=== PATIENT | female | born 1955 ===

== ENCOUNTER 2022-09-15 12:33 | Outpatient (REF) | payer MEDICARE, MEDICAID, SELFPAY ==
--- NOTE | 2022-09-15 15:09 | MHC.AU.MED ---
Medical Clearance for Hearing Instrumentation Date: 09/15/22 Patient Name: Kathy Estrella Date of : 1955 Primary Care Provider: Yolis Finch NP We have seen your patient on 09/15/22 and have determined that they are a candidate for amplification (See accompanying report). Specifically, they would benefit from: Hearing aid use in both ears There is a statute that addresses Medical Evaluation Requirements prior to fitting a patient with a hearing aid. According to [place] statute 265 CMR:6.03(1), (a) General. Except as provided in 265 CMR 6.03(1)(b), a hearing stenographer shall not sell a hearing aid unless the prospective user has presented to the hearing stenographer a written statement signed by a licensed physician that states that the patient's hearing loss has been medically evaluated and the patient may be considered a candidate for a hearing aid. The medical evaluation must have taken place within the preceding six months. Please note: Due to the [place] Statute referenced above, we cannot accept a signature other than that of a licensed physician. DOZER OPERATOR and PA signatures cannot be accepted. I am in agreement with the above recommendation. There is no medical contraindication for hearing instrumentation. Physician Signature Date Physician Name (Printed)
--- NOTE | 2022-09-15 15:24 | MHC.AU.HA1 ---
Hearing Aid Evaluation Date of Visit: 09/15/22 Historical Information: Description of Hearing: Within normal sloping to moderate sensorineural hearing loss, bilaterally Summary: Kathy reported that in most one-on-one situations, she hears well. However, in any situation with background noise, she has trouble understanding the conversation. She noted specific difficulty hearing clerks at the register at stores or the front office staff at doctor's appointments as well as following dialogue during movies. Kathy is hoping hearing aids will help ease some auditory listening fatigue as well as provide benefit in her daily interactions. Kathy is not particularly interested in bluetooth capabilities; however, she wants to opportunity to connect to her Android cellphone, if needed. Hearing Aid Prescription: Based on the individual?s shared listening needs, communication environments, dexterity, desire for connectivity, and personal preferences, the following prescription for amplification has been made: Right ear: Make, Model, Color: Phonak Audeo L70-R, Champagne Battery Size: Rechargeable Architectural Model Maker/Slim Tube: 1M Type of Earmold/Dome/CShell/SlimTip: Medium open dome Left ear: Left ear prescription to be same as Right Hearing Aid above: Make, Model, Color: Phonak Audeo L70-R, Champagne Battery Size: Rechargeable Architectural Model Maker/Slim Tube: 1M Type of Earmold/Dome/CShell/SlimTip: Medium open dome Plan of Care: Patient wishes to purchase hearing aids as prescribed Action Taken/Action Needed: Medical Clearance to be requested from PCP/ENT Hearing Instrument Fitting to be scheduled when materials arrive Primary Diagnosis: H90.3 Bilateral Sensorineural Hearing Loss Signature: Provider: Gumaro Hinton, [facility]
== END 2022-09-15 12:34 | disposition home or self-care (01) ==
LOC: HO.SH 12:33
PROVIDERS: Visit Provider Nurse Practitioner Primary Care
DX: H90.3 Sensorineural hearing loss, bilateral (principal)
CPT/HCPCS: 92557; 92567; 92591

== ENCOUNTER 2022-10-10 10:02 | Outpatient (REF) | payer MEDICARE, MEDICAID, SELFPAY ==
--- NOTE | 2022-10-10 10:58 | MHC.AU.HA2 ---
Hearing Instrument Fitting- Adult- Binaural Date of Visit: 10/10/22 Hearing Instruments Dispensed: Right Ear: Jacek, Model, Color, Serial Number: Blanka Jarvis L70-R SN: [id number] Color: Champagne Axle Turner Repair Warranty: 12/24/2025 Axle Turner Loss and Damage Warranty: 12/24/2025 [facility] Service Plan: 10/10/2023 Battery Size: Rechargeable Overhead Distribution Engineer/Slim Tube: 1M Earmold/Dome/CShell/SlimTip: Medium open dome Type of Wax Guard: CeruShield Left Ear: Jacek, Model, Color, Serial Number: Blanka Jarvis L70-R SN: [id number] Color: Ramonagne Axle Turner Repair Warranty: 12/24/2025 Axle Turner Loss and Damage Warranty: 12/24/2025 [facility] Service Plan: 10/10/2023 Battery Size: Rechargeable Overhead Distribution Engineer/Slim Tube: 1M Earmold/Dome/CShell/SlimTip: Medium open dome Type of Wax Guard: CeruShield Summary of Fitting: Performed feedback manager location and real ear measurements. Comfortable at real ear settings. Discussed care, use, and rechargeability including manually turning on/off, volume control use, and changing domes and wax guards. Practiced insertion and removal. Some difficulty with insertion but better with practice. Paired to cell phone. Kathy will download the [employer] lizzy at home and attempt to pair to the lizzy herself. Explained the importance of consistent use and acclimatization period. Kathy is motivated to use and adjust to the hearing aids and grateful to have them. Recommendations: A hearing instrument follow-up was scheduled. Diagnosis Code(s): Primary Diagnosis: H90.3 Bilateral Sensorineural Hearing Loss Signature: Provider: Gumaro Hinton, [facility]
== END 2022-10-10 10:03 | disposition home or self-care (01) ==
LOC: HO.HAP 10:02
PROVIDERS: Visit Provider Family Medicine
DX: Z46.1 Encounter for fitting and adjustment of hearing aid (principal); H90.3 Sensorineural hearing loss, bilateral
CPT/HCPCS: V5011; V5020; V5160; V5261

== ENCOUNTER 2022-11-01 13:58 | Outpatient (REF) | payer MEDICARE, MEDICAID, SELFPAY ==
--- NOTE | 2022-11-01 15:18 | MHC.AU.HA3 ---
Hearing Instrument Follow-Up- Binaural Date of Visit: 11/01/22 Right Ear: Jacek, , Color, Serial Number: Blanka Jarvis [id number]-[id number] SN: [id number] Color: [employer] Specialist Repair Warranty: 12/24/2025 [employer] Specialist Loss and Damage Warranty: 12/24/2025 [facility] Service Plan: 10/10/2023 Battery Size: Rechargeable Exterior Door Installer/Slim Tube: 1M Earmold/Dome/CShell/SlimTip:Medium open dome Type of Wax Guard: CeruShield Dispensed By: [facility] Date of Fittin10/10/2022 Left Ear: Jacek, , Color, Serial Number: Blanka Jarvis [id number]-[id number] SN: [id number] Color: Ramonagne [employer] Specialist Repair Warranty: 12/24/2025 [employer] Specialist Loss and Damage Warranty: 12/24/2025 [facility] Service Plan: 10/10/2023 Battery Size: Rechargeable Exterior Door Installer/Slim Tube: 1M Earmold/Dome/CShell/SlimTip: Medium open dome Type of Wax Guard: CeruShield Dispensed By: [facility] Date of Fittin10/10/2022 Follow-Up Summary: Kathy reported that she loves her hearing aids. She did not realize how many sounds she was missing including the birds chirpring, radiator hissing, and bread bag crinkling. She recently met with a few friends and did not struggle nearly as much to hear the conversation. Initially, she did not like her hair moving over the microphones; however, she has since acclimated to that as well. Data logging showed about 12 hours of use per day. Kathy downloaded the [employer] lizzy but could not pair the hearing aids. Able to connect and pair to the lizzy in office. Demoed how to reconnect/pair, if needed. Overall, Kathy is quite satisfied with her hearing aids and happy she pursued treatment for her hearing loss. Recommendations: Hearing instrument maintenance in 6 months, or sooner if needed. Please contact our clinic with any questions or concerns. Diagnosis Code(s): Primary Diagnosis: H90.3 Bilateral Sensorineural Hearing Loss Signature: Provider: Gumaro Hinton, [facility]
== END 2022-11-01 13:59 | disposition home or self-care (01) ==
LOC: HO.HAP 13:58
PROVIDERS: Visit Provider Internal Medicine
DX: Z13.89 Encounter for screening for other disorder (principal)

== ENCOUNTER 2023-01-23 10:40 | Outpatient (REF) | payer MEDICARE, MEDICAID, SELFPAY | END 2023-01-23 10:41 | disposition home or self-care (01) | LOC: HO.HAP 10:40 | PROVIDERS: Visit Provider Internal Medicine | DX: Z13.89 Encounter for screening for other disorder (principal) ==

== ENCOUNTER 2023-01-24 14:16 | Outpatient (REF) | payer MEDICARE, MEDICAID, SELFPAY | END 2023-01-24 14:17 | disposition home or self-care (01) | LOC: HO.HAP 14:16 | PROVIDERS: Visit Provider Internal Medicine | DX: Z13.89 Encounter for screening for other disorder (principal) ==

== ENCOUNTER 2023-03-30 10:40 | Outpatient (REF) | payer MEDICARE, MEDICAID, SELFPAY | END 2023-03-30 10:41 | disposition home or self-care (01) | LOC: HO.HAP 10:40 | DX: Z13.89 Encounter for screening for other disorder (principal) ==

== ENCOUNTER 2023-04-16 10:47 | Outpatient (REF) | payer MEDICARE, MEDICAID, SELFPAY | END 2023-04-16 10:48 | disposition home or self-care (01) | LOC: HO.HAP 10:47 | PROVIDERS: Visit Provider Nurse Practitioner Primary Care | DX: Z13.89 Encounter for screening for other disorder (principal) ==

== ENCOUNTER 2023-09-11 09:26 | Outpatient (REF) | payer MEDICARE, MEDICAID, SELFPAY | END 2023-09-11 09:27 | disposition home or self-care (01) | LOC: HO.HAP 09:26 | PROVIDERS: Visit Provider Nurse Practitioner Primary Care | DX: Z13.89 Encounter for screening for other disorder (principal) ==

== ENCOUNTER 2023-09-19 16:14 | Outpatient (REF) | payer MEDICARE, MEDICAID, SELFPAY | END 2023-09-19 16:15 | disposition home or self-care (01) | LOC: HO.HAP 16:14 | PROVIDERS: Visit Provider Nurse Practitioner Primary Care | DX: Z13.89 Encounter for screening for other disorder (principal) ==

== ENCOUNTER 2025-01-22 08:57 | Outpatient (REF) | payer MEDICARE, MEDICAID, SELFPAY ==
--- OUTSIDE RECORDS SUMMARY | 2025-01-22 09:13 | XMS_ITS | Clinical Summary ---
Author Organization [facility] Address [address] [place] [id number] Care Team Providers Care Quality Associate Name Role Phone Linda Ramos MD Primary Care Provider [phone] Allergies Active Allergy Reactions Criticality Noted Date Comments Iodinated Contrast Media 11/20/2018 Ivp Dye [iv Contrast Dye] Other Reaction(s): Hives/Urticaria Medications albuterol HFA (PROAIR HFA ; PROVENTIL HFA ; VENTOLIN HFA) 90 mcg/actuation inhaler Inhale 2 Puffs into the lungs 4 times daily as needed for Cough or Wheezing. 06/14/2021 Active ascorbic acid (VITAMIN C) 1,000 mg tablet Take 1,000 mg by mouth daily. Active cholecalciferol (VITAMIN D-3) 25 mcg (1,000 unit) capsule Take 1,000 Units by mouth daily. Active ferrous fumarate 324 mg (106 mg iron) tablet Take 325 mg by mouth daily. Active fluticasone propionate (FLONASE) 50 mcg/actuation nasal spray Two sprays per nostril once daily 06/21/2020 Active fluticasone HFA (Flovent HFA) 220 mcg/actuation inhaler Inhale 1 Puff into the lungs 2 times daily. 06/14/2021 Active loratadine 10 mg capsule Take 10 mg by mouth daily. Active predniSONE (DELTASONE) 20 mg tablet Take 40mg for 4 days, then 30mg for 3 days, then 20mg for 3 days, then 10 mg for 3 days 06/21/2020 Active QUERCETIN ORAL Take 100 mg by mouth 4 times daily. Active sulindac (CLINORIL) 150 mg tablet Take 1 Tab by mouth 2 times daily. 05/07/2019 Active traZODone (DESYREL) 50 mg tablet Take 50 mg by mouth at bedtime. Active venlafaxine XR (EFFEXOR-XR) 150 mg 24 hr capsule 08/22/2018 Active Active Problems Problem Noted Date Diagnosed Date Chronic fatigue syndrome 07/25/2019 Orthostatic hypertension 01/31/2019 Overview (08/21/2024): Follows with cardiology Cognitive change 10/25/2018 Overview (08/21/2024): Normal MRI brain from [facility] 07/2017. Sleep study pending ADHD (attention deficit hyperactivity disorder) 10/15/2018 Allergic rhinitis 10/15/2018 Anxiety 10/15/2018 Asthma 10/15/2018 Carpal tunnel syndrome 10/15/2018 Cataract 10/15/2018 Eczema 10/15/2018 Hyperlipidemia 10/15/2018 Migraine 10/15/2018 Overview (08/21/2024): Onset 09/22/2007 Sciatica 10/15/2018 Insomnia 06/05/2018 Overview (08/21/2024): Normal sleep study 03/01/2018 Iron deficiency anemia 06/05/2018 Major depressive disorder 06/05/2018 Overview (08/21/2024): Onset 06/28/2016 Overweight (BMI 25.0-29.9) 06/05/2018 RLS (restless legs syndrome) 06/05/2018 Overview (08/21/2024): Resolved with treatment of iron deficiency Vitamin D deficiency 06/05/2018 Immunizations Name Administration Dates Next Due Influenza Quadravalent, MDCK , 0.5ml, preservative free (Flucelvax) 6mo and older 07/24/2019 Influenza Quadravalent, MDCK , 0.5ml, with preservative (Flucelvax) 6mo and older 06/05/2018 Pneumococcal conjugate 13 va lent (Prevnar 13, PCV13) 2mo and older 10/23/2018 Tdap Tetanus diptheria acell ular pertussis (Boostrix; Adacel) 7yo and older 10/23/2018 Surgical History Surgery Date Site/Laterality Comments OTHER SURGICAL HISTORY PROCEDURE: [place] DILATION & CURETTAGE DX&/THER NONOBSTETRIC WISDOM TOOTH EXTRACTION PROCEDURE: HISTORICAL WISDOM TEETH EXTRACTION CHOLECYSTECTOMY 09/11/2017 PROCEDURE: HISTORICAL CHOLECYSTECTOMY; COMMENT: lap Medical History Medical History Date Comments Insomnia 06/05/2018 DX:Insomnia Iron deficiency anemia 06/05/2018 DX:Iron d eficiency anemia RLS (restless legs syndrome) 06/05/2018 DX: RLS (restless legs syndrome); COMMENT: Resolved with treatment of iron deficiency Vitamin D deficiency 06/05/2018 DX:Vitamin D deficiency Overweight (BMI 25.0-29.9) 06/05/2018 DX:Ov erweight (BMI 25.0-29.9) Major depressive disorder 06/05/2018 DX:Trevin or depressive disorder; COMMENT: Onset 06/28/2016 Sciatica 10/15/2018 DX:Sciatica Asthma 10/15/2018 DX:Asthma Hyperlipidemia 10/15/2018 DX:Hyperlipidemi a Carpal tunnel syndrome 10/15/2018 DX:Carpal tunnel syndrome Eczema 10/15/2018 DX:Eczema Cataract 10/15/2018 DX:Cataract Allergic rhinitis 10/15/2018 DX:Allergic rh initis Anxiety 10/15/2018 DX:Anxiety ADHD (attention deficit hype ractivity disorder) 10/15/2018 DX:ADHD (attention deficit hyperactivity disorder) Cognitive change 10/25/2018 DX:Cognitive ch machelle; COMMENT: Normal MRI brain from [facility] 07/2017. Sleep study pending Orthostatic hypertension 01/31/2019 DX:Orth ostatic hypertension; COMMENT: Follows with cardiology Family History Medical History Relation Name Comments Hyperthyroidism Father Leukemia, As thma Other: Ovarian cancer Mother Other: Rashad's Disease Paternal Grandfather Hyperlipidemia Sister 1 Hyperlipidemia Sister 2 Relation Name Status Comments Father Mother Paternal Grandfather Sister 1 Sister 2 Social History Tobacco Use Types Packs/Day Years Used Date Smoking Tobacco: Never Smokeless Tobacco: Never Alcohol Use Standard Drinks/Week Comments No 0 (1 standard drink = 0.6 oz pur e alcohol) Comments Unknown Sex and Gender Information Value Date Recorded Sex Assigned at Not on file Legal Sex Female 1:20 PM EST Gender Identity Not on file Sexual Orientation Not on file Obstetrics History Plan of Treatment Health Maintenance Due Date Last Done Comments Breast Cancer Screening 1955 Zoster Vaccines (1 of 2) 2006 RSV Immunization Adult Patients (1 - Risk 60-74 years 1-dose series) 2016 Pneumococcal Vaccine: 50+ Years (2 of 2 - PPSV23) 12/18/2018 10/23/2018 Cholesterol Screening (Lipid Panel) 08/12/2022 Depression Screening 08/12/2022 Falls Risk Assessment 08/12/2022 Social Influencers of Health Screening 08/12/2022 Colorectal Cancer Screening: Colonoscopy 11/09/2023 11/08/2018 COVID-19 Vaccine (1 - 2023-2 5 season) 2024 Influenza Vaccine (Season Ended) 2025 07/24/2019, 06/05/2018 DTaP,Tdap,and Td Vaccines (2 - Td or Tdap) 10/23/2028 10/23/2018 Osteoporosis Screening (Bone Density Screening) 08/25/2032 08/25/2022 Hepatitis C Screening Completed 06/05/2018 HIB Vaccines Aged Out No longer eligi ble based on patient's age to complete this topic HPV Vaccines Aged Out No longer eligi ble based on patient's age to complete this topic Hepatitis A Vaccines Aged Out No long er eligible based on patient's age to complete this topic Hepatitis B Vaccines Aged Out No long er eligible based on patient's age to complete this topic IPV Vaccines Aged Out No longer eligi ble based on patient's age to complete this topic MMR Vaccines Aged Out No longer eligi ble based on patient's age to complete this topic Meningococcal ACWY Vaccine Aged Out N o longer eligible based on patient's age to complete this topic Meningococcal B Vaccine Aged Out No l onger eligible based on patient's age to complete this topic RSV Immunization Patients Under 20 months Aged Out No longer eligible b ased on patient's age to complete this topic Varicella Vaccines Aged Out No longer eligible based on patient's age to complete this topic Procedures Procedure Name Priority Date/Time Associated Diagnosis Comments [facility] DEXA AXIAL SKELETON Routine 08/25/2022 4:27 PM EST Encounter for screening for osteoporosis COLONOSCOPY Routine 11/08/2018 HEPATITIS C SCREENING Routine 06/05/2018 from Last 3 Months or Most Recently Relevant to Health Maintenance Results * [facility] DEXA AXIAL SKELETON (08/25/2022 4:27 PM EST) Anatomical Region Laterality Modality Mammography 08/25/2022 1:55 PM EST Narrative 08/25/2022 4:[address] [facility] Diagnostic Imaging Department [address] [place] [id number] Patient: ??SULEMA ESTRELLA ?/Age/Sex: 1955 - 67 - F Unit#: ??[id number] ? Location/Status: ??SPDIMAM/REG CLI ? Mnemonic/Ordering Site: ??MAMDEXAAX/SPMAM Ordering Physician: ??RUPESH JURADO NP [facility] Dexa Axial Skeleton - 08/25/22 [id number] HISTORY: ??The patient is a 67-year-old postmenopausal female with clinical concern for metabolic bone disease. FINDINGS: ??Dual energy x-ray absorptiometry of the lumbar spine and femurs is performed. The mean bone mineral density at L1-3 is 1.162 gm/cm2 which is 99% of that of young normals and 111% of that of age matched controls. This yields a T- score of -0.1 and a Z-score of 0.9 and there is therefore no evidence of osteoporosis or osteopenia here. The mean bone mineral density of the femurs bilaterally is 0.979 gm/cm2 which is 97% of that of young normals and 108% of that of age matched controls. ??This yields a T-score of -0.2 and a Z-score of 0.6 and there is therefore no evidence of osteoporosis or osteopenia here. ??However, the T-score of the right femoral neck is -1.2 which is diagnostic of osteopenia. IMPRESSION: 1. Osteopenia. 2. FRAX analysis yields a 10-year probability of major osteoporotic fracture of 8.4% and a 10-year probability of hip fracture of 0.8%. Code 10616 Dictating Physician: ??JOCELINE HECK MD Electronically Signed by: ??JOCELINE HECK MD Dic Date/Time: ??08/25/221624 Sign date/Time: ??08/25/221626 Procedure Note Joceline Heck MD - 10/05/2023 [facility] Diagnostic Imaging Department [address] [place] [address] Patient: SULEMA ESTRELLA /Age/Sex: 1955 - 67 - F Unit#: [id number] Location/Status: [facility]em[facility] Ordering Physician: RUPESH JURADO NP [facility] Dexa Axial Skeleton - 08/25/22 - [id number] HISTORY: The patient is a 67-year-old postmenopausal female withclinical concern for metabolic bone disease. FINDINGS: Dual energy x-ray absorptiometry of the lumbar spine and femursis performed. The mean bone mineral density at L1-3 is 1.162 gm/cm2 which is99% of that of young normals and 111% of that of age matched controls. Thisyields a T- score of -0.1 and a Z-score of 0.9 and there is therefore no evidence of osteoporosis or osteopenia here. The mean bone mineral density of the femurs bilaterally is 0.979 gm/gu9xpwkx is 97% of that of young normals and 108% of that of age matched controls.This yields a T-score of -0.2 and a Z-score of 0.6 and there is therefore noevidence of osteoporosis or osteopenia here. However, the T-score of the rightfemoral neck is -1.2 which is diagnostic of osteopenia. IMPRESSION: 1. Osteopenia. 2. FRAX analysis yields a 10-year probability of major osteoporoticfracture of 8.4% and a 10-year probability of hip fracture of 0.8%. Code 20439 Dictating Physician: JOCELINE HECK MD Electronically Signed by: JOCELINE HECK MD Dic Date/Time: 08/25/22 1625 Sign date/Time: 08/25/22 1627 Rupesh Jurado IMG BI PROCEDURES Final Re sult * Colonoscopy (11/08/2018) [facility] Colonoscopy No Interpretation , Abstracted Anatomical Region Laterality Modality Other Historical Provider HEALTH MAINTENANCE Final Result * Hepatitis C Screening (06/05/2018) [facility] Hepatitis C Screening Abstracted Historical Provider HEALTH MAINTENANCE Final Result from Last 3 Months or Most Recently Relevant to Health Maintenance Care Teams Quality Associate Relationship Specialty Start Date End Date Linda Ramos MD [address] [place] [id number] PCP - General Internal Medicine 06/14/21
--- NOTE | 2025-01-22 09:37 | MHC.AU.HA3 ---
Hearing Instrument Follow-Up- Binaural Date of Visit: 01/22/25 Right Ear: Jacek, , Color, Serial Number: Blanka Jarvis [id number]-R SN: [id number] Color: Arline Patient Accounts Clerk Repair Warranty: 12/24/2025 Patient Accounts Clerk Loss and Damage Warranty: 12/24/2025 [facility] Service Plan: 10/10/2023 Battery Size: Rechargeable Gang Supervisor Pipe Lines/Slim Tube: 1M Earmold/Dome/CShell/SlimTip:Medium open dome Type of Wax Guard: CeruShield Dispensed By: [facility] Date of Fittin10/10/2022 Left Ear: Jacek, , Color, Serial Number: Blanka Jarvis [id number]-R SN: [id number] Color: [employer] Patient Accounts Clerk Repair Warranty: 12/24/2025 Patient Accounts Clerk Loss and Damage Warranty: 12/24/2025 [facility] Service Plan: 10/10/2023 Battery Size: Rechargeable Gang Supervisor Pipe Lines/Slim Tube: 1M Earmold/Dome/CShell/SlimTip: Medium open dome Type of Wax Guard: CeruShield Dispensed By: [facility] Date of Fittin10/10/2022 Follow-Up Summary: Kathy reports trouble with lizzy since getting a new phone. Also reports feeling like the left hearing aid isn't working. Found both aids with occluded wax guards. Cleaned aids, replaced wax guards, replaced domes. Listening check positive. Forgot and reconnected aids to phone, lizzy now finding both hearing aids. Recommendations: Recommendations: Hearing instrument follow-up or maintenance as needed. Diagnosis Code(s): Primary Diagnosis: H90.3 Bilateral Sensorineural Hearing Loss Signature: Provider: Gumaro Yates, CCC-A
== END 2025-01-22 08:58 | disposition home or self-care (01) ==
LOC: HO.HAP 08:57
PROVIDERS: PCP Nurse Practitioner Primary Care; Visit Provider Nurse Practitioner Primary Care
DX: Z46.1 Encounter for fitting and adjustment of hearing aid (principal); H90.3 Sensorineural hearing loss, bilateral
CPT/HCPCS: 92593; 99499